=== PATIENT | male | born 2000 | race Caucasian/White ===

== ENCOUNTER 2020-01-16 14:21 | Outpatient (CLI) | payer OTHER, SELFPAY ==
--- NOTE | ~2020-01-16 | XR_ITS ---
EXAMINATION: [id number] DATE: 01/16/2020 14:43 INDICATION: Neck pain. TECHNIQUE: 3 views of cervical spine were obtained. COMPARISON: None. 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 Vertebral body heights and intervertebral disc hei ghts are normal. The facet joints are unremarkable. No central canal stenosis or prevertebral soft ti ssue swelling. IMPRESSION: 1. No etiology for neck pain. Reviewed, dictated and finalized at location A.
== END 2020-01-16 14:22 | disposition home or self-care (01) ==
PROVIDERS: PCP Family Medicine; Visit Provider Physician Assistant
DX: M54.2 Cervicalgia (principal); R51 Headache
CPT/HCPCS: 72040